=== PATIENT | male | born 1965 | race Caucasian/White ===

== ENCOUNTER → 2017-04-26 | Outpatient (CLI) | payer OTHER ==
--- NOTE | 2017-04-26 14:49 | KCIC ---
EXAM: Lumbar spine MRI without contrast. HISTORY: Lower back pain. Right lower extremity radiculopathy. TECHNIQUE: Multiplanar, multisequence magnetic resonance imaging of the lumbar spine was performed without contrast. COMPARISON: None. FINDINGS: There is no significant listhesis. The vertebral bodies are normal in height. There is degenerative endplate remodeling with disc space narrowing predominantly at L5-S1. There are multiple vertebral body hemangiomas. No suspicious osseous lesion is seen. The conus terminates at T12. There are multiple endplate Schmorl's nodes. At T11-T12, there is a shallow left paracentral predominant disc bulge and endplate remodeling. There is no stenosis. At T12-L1, there is no stenosis. At L1-L2, there is no stenosis. At L2-L3, there is a posterior central annular tear superimposed on a disc bulge and anterior endplate remodeling. There is minimal facet arthropathy. There is no stenosis. At L3-L4, there is a posterior central annular tear superimposed on a disc bulge and endplate remodeling. There is abutment of the exiting left L3 nerve root without significant stenosis. At L4-L5, there is a shallow posterior central to right paracentral disc protrusion with minimal inferior extrusion superimposed on a disc bulge. There is minimal facet arthropathy. There is no stenosis. At L5-S1, there is a posterior central to right paracentral disc protrusion and annular tear superimposed on a disc bulge and endplate remodeling. There is abutment of the traversing S1 nerve roots without significant stenosis. IMPRESSION: Multilevel degenerative change of the lower thoracic and lumbar spine, described in detail above. This results in abutment of the exiting left L3 nerve root at L3-L4 and abutment of the bilateral S1 nerve roots at L5-S1. Electronically signed by: Dulce Gaytan MD (04/26/2017 2:45 PM) [id number]
== END | disposition home or self-care (01) ==
LOC: KCIC MRI 14:09
PROVIDERS: ATTEND Family Medicine
DX: M47.896 Other spondylosis, lumbar region (principal); M47.894 Other spondylosis, thoracic region; M62.81 Muscle weakness (generalized)
CPT/HCPCS: 72148

== ENCOUNTER → 2020-04-08 | Outpatient (CLI) | payer OTHER ==
--- NOTE | 2020-04-08 11:29 | KCIC ---
EXAMINATION: MRI RIGHT KNEE WITHOUT IV CONTRAST CLINICAL HISTORY: Right knee pain medially for several months. No specific injury. TECHNIQUE: Multiplanar multisequential images obtained through the knee without intravenous contrast. COMPARISON: Right knee radiographs 03/28/2020 FINDINGS: MENISCI: Medial Meniscus: Intact. Lateral Meniscus: Intact. LIGAMENTS: ACL: Intact PCL: Intact MCL: Intact LCL Complex: Intact CARTILAGE: Medial Femoral Condyle: Small areas(s) of predominantly low grade (less than 50% thickness) cartilage loss and or fissuring with smaller area(s) of full thickness cartilage loss and or fissuring with subchondral marrow reactive/cystic changes in the weightbearing portion of the condyle Medial Tibial Plateau: Normal Lateral Femoral Condyle: Normal Lateral Tibial Plateau: Normal Patella: Moderate sized area(s) of full thickness cartilage loss and or fissuring with subchondral marrow reactive/cystic changes in the medial facet Trochlea: Small area(s) of full thickness cartilage loss and or fissuring with subchondral marrow reactive/cystic changes in the inferior medial trochlea TENDONS: The distal quadriceps and patellar tendons are intact. The popliteus tendon is intact. BONES AND MARROW: No evidence of acute fracture or suspicious marrow replacing process. MUSCLES: Muscle bulk and signal intensity within normal limits. JOINT FLUID AND SYNOVIUM: No joint effusion. No synovitis. No Carlton's cyst. IMPRESSION: Full-thickness chondral wear moderate in the patellofemoral compartment and mild in the medial femoral condyle. No meniscus tear or definite ligamentous injury. Electronically signed by: Sergei Cross DO (04/08/2020 11:26 AM) [id number]
== END ==
LOC: KCIC MRI 09:45
PROVIDERS: ATTEND Orthopaedic Surgery
DX: M25.561 Pain in right knee (principal)
CPT/HCPCS: 73721